=== PATIENT | male | born 1995 | race Caucasian/White ===

== ENCOUNTER 2024-11-11 10:04 | Outpatient (CLI) | payer SELFPAY | END 2024-11-11 10:05 | disposition home or self-care (01) | LOC: CSHMRI 10:04 | PROVIDERS: ATTEND Nurse Practitioner Family | DX: M66.821 Spontaneous rupture of other tendons, right upper arm (principal); S46.211A Strain of muscle, fascia and tendon of other parts of biceps, right arm, initial encounter ==